=== PATIENT | male | born 1995 | race Caucasian/White ===

== ENCOUNTER 2019-11-06 08:25 | Emergency (ER) | payer SELFPAY ==
[2019-11-06 08:36] VITALS: BP 154/108; PULSE 87; RESP 16; TEMP 36.9; O2SAT 99; BMI 30.4
--- NOTE | 2019-11-06 08:45 | ED_ITS ---
Entered by Therese Layton, acting as scribe for Jesu Delarosa DO HPI - Extremity Problem General: Chief complaint: Extremity Injury, Upper Stated complaint: RIGHT MIDDLE FINGER PAIN Time Seen by Provider: 11/06/19 08:32 History of Present Illness: HPI Narrative: 24 yo male presents with right middle finger injury. Pt states that he smashed his finger in a garage door about 1 week ago, and now it looks infected. Pt states that he has some pain. MD Complaint: extremity pain (right middle finger pain) Onset (ago): week(s) (1) Pain Consistency: constant Location: right Quality: aching Associated symptoms: Deny chest pain, fever(s) or rash Review of Systems Const: Denies: fever, chills, body aches, fatigue, malaise or night sweats Eyes: Denies: change in vision or blurry vision ENMT: Denies: throat pain, oral sores/lesions, dental pain, nasal discharge or nasal congestion Card: Denies: chest pain, palpitations, irregular heart rhythm, edema, syncope, shortness of breath on exertion, shortness of breath when lying down or leg pain with exertion Resp: Denies: shortness of breath, productive cough, non-productive cough or wheezing GI: Denies: abdominal pain, nausea, vomiting, vomiting blood, coffee grounds in vomit, difficulty swallowing, heartburn/indigestion, diarrhea, constipation, cramping, blood in stool or black tarry stool : Denies: flank pain, difficulty urinating, painful urination, urinary fr equency, urinary urgency, urinary incontinence or blood in urine Musc: Reports: extremity pain; Denies: neck pain, back pain, extremity swelling, joint pain or joint swelling Skin/Breast: Denies: rash, itching or redness Neuro: Denies: headache, numbness in extremities, weakness in extremities, changes in sensation, lack of coordination, difficulty walking, frequent falls, dizziness, vertigo or confusion Psych: Denies: anxiety, depression, loss of interest, visual hallucinations, auditory hallucinations, suicidal ideation or homicidal ideation Endo: Denies: excessive urination, excessive thirst, tired all the time or cold intolerance Kevin/Lymph: Denies: easy bruising, easy bleeding, petechiae, enlarged lymph nodes or tender lymph nodes PFSH ED PFSH: Social History Smoking and tobacco status: current every day smoker Physical Exam Const: COMMON NORMALS: average body habitus, oriented x3 and alert GENERAL APPEARANCE: cooperative, comfortable, well kempt and well developed NUTRITIONAL APPEARANCE: obese ORIENTATION/CONSCIOUSNESS: Yes awake, Yes oriented to person and Yes oriented to place HENMT: COMMON NORMALS: normocephalic, head/scalp atraumatic, EAC's normal, TM's normal bilaterally, external nose normal, moist oral mucous membranes and oropharynx normal HEAD & SCALP: normocephalic and atraumatic NOSE: external nose normal EXTERNAL AUDITORY CANAL: EAC's normal TYMPANIC MEMBRANE: TM's normal bilaterally MOUTH: oral and palatal mucosa normal, lip normal and tongue normal THROAT: posterior oropharynx normal and tonsils normal Eye: COMMON NORMALS: PERRL, EOMs intact bilaterally, conjunctivae normal and no scleral icterus CONJUNCTIVA: Yes conjunctivae normal PUPIL: Yes PERRL Neck/C-Spine: COMMON NORMALS: full ROM, no lymphadenopathy, supple, no meningeal signs and thyroid normal THYROID: thyroid normal and asymmetrical Lymph: LYMPHATIC: no lymphadenopathy noted Resp: COMMON NORMALS: normal respiratory effort, no retractions, no use of accessory muscles and clear to auscultation bilaterally AUSCULTATION: clear to auscultation bilaterally Cardio: COMMON NORMALS: regular rate and regular rhythm RATE: regular rate RHYTHM: regular rhythm HEART SOUNDS: no murmurs GI: COMMON NORMALS: normal to inspection, nondistended, normoactive bowel sounds, soft to palpation and no hepatosplenomegaly PALPATION: Yes soft and Yes no hepatosplenomegaly : COMMON NORMALS: Yes no CVA tenderness BLADDER/KIDNEY EXAM: Yes no CVA tenderness Back/Pelvis: COMMON NORMALS: no CVA tenderness LUMBAR SPINE/LOWER BACK: Yes normal to inspection Extremity: NARRATIVE EXTREMITY EXAM: swollen right middle finger. Lateral aspect extending proximally to the DIP is exquisitely tender. No active drainage. No epitrochlear lymph nodes RIGHT UPPER EXTREMITY: Yes hand & digits Neuro: COMMON NORMALS: oriented x3 SENSORIUM/ORIENTATION: Yes alert, Yes oriented to person and Yes oriented to place MENINGEAL SIGNS: Yes no meningeal signs Psych: APPEARANCE: Yes well kempt Skin: COMMON NORMALS: no rashes or lesions noted and skin turgor normal GENERAL SKIN EXAM: no rashes or lesions noted and turgor normal Procedures Abscess I/D Site: upper extremity (Right third finger) Side (if applicable): left Sedation/analgesia: none Technique: other (Incised with the bevel of an 18-gauge needle to) Amount of fluid expressed (mL): 2 Irrigation: No Packing used?: none Complications: pain Course Vital Signs: Vital signs: Vital Signs Temperature 98.4 F 11/06/19 08:36 Pulse Rate 87 11/06/19 08:36 Respiratory Rate 16 11/06/19 08:36 Blood Pressure 154/108 11/06/19 08:36 Pulse Oximetry 99 11/06/19 08:36 Discharge Plan Discharge Patient Disposition: Home, Self-Care Clinical Impression: Paronychia Condition: Stable Prescriptions: New Augmentin 875-125 mg tablet 1 tab PO BID Qty: 14 RF: 0 No Action buspirone 30 mg tablet 30 mg PO BID PRN (Reason: Anxiety) RF: 0 Discharge Orders: Discharge Order (Routine); Ordered 11/06/19 Ordered By: Jesu Delarosa Referrals: Moreno Sena, [employer] [Primary Care Provider] - Activity Restrictions/Additional Instructions: Recheck if worsens or is not improving Discharge Date/Time: 11/06/19 09:43 Coding Level of Care Code ED Patient Intake Representative for Chg Fwd Exam Comprehensive The documentation recorded by the Calin winkler Kialy, accurately reflects the service I personally performed and the decisions made by Isaura singh Curtis L, DO Nov 06, 2019 08:25
--- NOTE | 2019-11-06 08:47 | XRR_ITS ---
PROCEDURE INFORMATION: Exam: XR Right Finger(s) Exam date and time: 11/06/2019 8:59 AM Age: 24 years old Clinical indication: Injury or trauma; Injury history: Garage door vs finger; Initial encounter; Blunt trauma (contusions or hematomas; Right; Middle finger; Additional info: 3rd finger TECHNIQUE: Imaging protocol: XR Right fingers. Views: Minimum 2 views. COMPARISON: No relevant prior studies available. FINDINGS: Bones/joints: No fracture. Soft tissues: Soft tissue swelling. XR/XR finger RT min 2V 48543 IMPRESSION: No acute fracture.
== END 2019-11-06 09:43 | disposition home or self-care (01) ==
PROVIDERS: Emergency Provider Family Medicine; Family Provider Nurse Practitioner Family; PCP Nurse Practitioner Family
DX: L03.011 Cellulitis of right finger (principal); E66.9 Obesity, unspecified; Z68.30 Body mass index [BMI] 30.0-30.9, adult; F17.200 Nicotine dependence, unspecified, uncomplicated
CPT/HCPCS: 26010; 73140; 99281; 99283